=== PATIENT | male | born 1970 | race Caucasian/White ===

== ENCOUNTER 2021-08-28 23:52 | Emergency (ER) | payer OTHER ==
[~2021-08-28] VITALS: Ht 175.3 cm; Wt 68.0 kg
[~2021-08-28 23:52] MED LIST: HUMALOG100 UNIT/1 SQ; LANTUS SC; LISINOPRIL5 MG PO; NOHOMEMEDICATIONS
[2021-08-29 00:33] LABS: ABSOLUTE NEUTROPHILS 6.6 thou/uL (1.4-8.2); BASOPHILS 0.4 % (0.0-2.0); EOSINOPHILS 1.9 % (0.0-3.0); HEMATOCRIT 36.3 % (42.0-52.0); HEMOGLOBIN 11.6 gm/dL (14.0-18.0); LYMPHOCYTES 30.7 % (24.0-44.0); MCH 27.8 pg (26.0-34.0); MCV 86.9 fL (80.0-100.0); MONOCYTES 7.5 % (1.0-8.0); PLATELET COUNT 474 thou/uL (150-400); POLYS 59.5 % (36.0-66.0); RBC 4.17 mil/uL (4.50-6.00); RDW 13.5 % (10.5-14.5); WBC 11.1 thou/uL (4.0-11.0)
[2021-08-29 00:34] LABS: CALCIUM 8.8 mg/dL (8.5-10.1); CREATININE 1.8 mg/dL (0.7-1.3); POTASSIUM 3.4 mmol/L (3.5-5.1)
[2021-08-29 00:40] LABS: ALBUMIN 3.5 g/dL (3.4-5.0); TOTAL BILIRUBIN 0.2 mg/dL (0.2-1.0); TOTAL PROTEIN 8.4 g/dL (6.4-8.2)
[2021-08-29 01:11] VITALS: BP 146/76
== END 2021-08-29 02:00 | disposition home or self-care (01) ==
LOC: ER 23:52
PROVIDERS: Emergency Medicine
DX: E11.649 Type 2 diabetes mellitus with hypoglycemia without coma (principal); J45.909 Unspecified asthma, uncomplicated; Z88.1 Allergy status to other antibiotic agents; Z79.4 Long term (current) use of insulin